=== PATIENT | male | born 1965 | race Caucasian/White ===

== ENCOUNTER 2022-05-19 08:03 | Outpatient (CLI) | payer BC, SELFPAY ==
--- NOTE | 2022-05-19 08:15 | MR_ITS ---
[facility] [address] [facility] [address] Phone:?[phone] Fax:?[phone] Referring Physician Information: Shimon Ospina M.D. [address] [facility] [address] Phone:?[phone] Fax:?[phone] Patient:?Al Wiley D.O.B:?1965 Sex:?Male Phone:?[phone] [facility] MRN:?[id number] Exam Date:?05/19/2022 ? EXAM: MRI of the LEFT KNEE, without contrast CLINICAL: Left knee pain. Evaluate for medial meniscal tear. COMPARISONS: None available. TECHNICAL: MR sequences of the left knee: sagittals: PD, PDFS coronals: PD, T2FS axials: PD, PDFS SEDATION: None. CONTRAST: None. FINDINGS: Ligaments: ACL: Intact ACL anteromedial and posterolateral bundles, without sprain or tear. PCL: Intact PCL, without acute or chronic injury. MCL: Intact MCL superficial and deep layers, without injury. LCL: There is mild partial interstitial tearing of the conjoined distal LCL and biceps femoris tendon with adjacent soft tissue edema as seen on axial series 4 image 26-28. Remainder of the LCL appears intact. Posterolateral corner: There is increased edema within the popliteus muscle. Popliteus tendon is intact. There is mild partial interstitial tearing of the conjoined distal LCL and biceps femoris tendon as above. The distal iliotibial band and the popliteofibular ligament appear intact. Posteromedial corner: Semimembranosus, pes anserine tendons and posterior oblique ligament appear intact. Extensor mechanism: Patellar tendon: Intact, without tendinopathy. Quadriceps tendon: Intact, without tendinopathy. Retinacula: Medial and lateral retinacula are intact. Patellofemoral joint: Patella: Small segment of full-thickness chondral loss involving the medial patellar facet on axial series 4 image 8-10 with underlying subchondral marrow edema. There is chondral heterogeneity with deep chondral fissuring involving the lateral facet with minimal underlying subchondral reactive edema. Trochlea: Small segment of chondral heterogeneity and delamination involves the inferomedial trochlea on sagittal series 6 image 15 with minimal adjacent subchondral reactive edema. Medial compartment: Medial meniscus: There is complex tearing involving the posterior horn extending into the posterior root, body segment and anterior horn. Approximately 4 mm of medial extrusion of torn body segment medial meniscus into the medial gutter. Medial cartilage: High-grade/full-thickness chondral loss involves the weightbearing medial femoral condyle and peripheral medial tibial plateau with underlying subchondral reactive edema. Lateral compartment: Lateral meniscus: Mild ill-defined fraying/tearing involving the undersurface of the body segment on coronal series 8 image 19-20 and sagittal series 6 image 25. Ill-defined fraying/tearing involving the posterior root fibers on sagittal series 6 images 18-20. No significant meniscal displacement. Lateral cartilage: There is heterogeneity of the lateral compartment cartilage. Grade 3 chondral thinning involving the peripheral posterior nonweightbearing lateral femoral condyle. Knee joint: Effusion: Physiologic left knee effusion. Intra-articular bodies:?No convincing bodies identified. Popliteal cyst: None. Bones: No suspicious bone marrow signal alteration or fracture line. IMPRESSION: 1. Tearing of the majority of the medial meniscus with extrusion of torn body segment meniscal tissue into the medial gutter. 2. Mild fraying/tearing involving the undersurface of the body segment lateral meniscus with ill-defined fraying/tearing involving the posterior root fibers lateral meniscus. 3. Mild partial articular surface tearing of the conjoined distal LCL and biceps femoris tendon with adjacent soft tissue edema. Popliteus muscle strain is also noted. 4. Tricompartmental chondromalacia/chondral loss as above. JCZ Electronically signed on 05/19/2022 1:39:00 PM by Hermilo Caro D.O.
== END 2022-05-19 08:04 | disposition home or self-care (01) ==
PROVIDERS: PCP Family Medicine; Visit Provider Family Medicine
DX: M25.562 Pain in left knee (principal); S83.242A Other tear of medial meniscus, current injury, left knee, initial encounter; M23.252 Derangement of posterior horn of lateral meniscus due to old tear or injury, left knee; M94.262 Chondromalacia, left knee
CPT/HCPCS: 73721

== ENCOUNTER 2022-10-05 10:00 | Outpatient (CLI) | payer BC, SELFPAY | END 2022-10-05 10:01 | disposition home or self-care (01) | PROVIDERS: PCP Family Medicine; Visit Provider Family Medicine | DX: Z00.00 Encounter for general adult medical examination without abnormal findings (principal); E78.5 Hyperlipidemia, unspecified; E11.9 Type 2 diabetes mellitus without complications; I10 Essential (primary) hypertension; R04.2 Hemoptysis; M10.9 Gout, unspecified; Z12.5 Encounter for screening for malignant neoplasm of prostate | CPT/HCPCS: 80048; 80061; 84153; 84460; 85025 ==

== ENCOUNTER 2022-11-12 11:35 | Outpatient (CLI) | payer BC, SELFPAY ==
--- NOTE | 2022-11-12 07:29 | PM.ANHP ---
HPI - Pre-Anesthesia History of Present Illness Time Seen by Provider: : Date Seen: 11/12/22 Date of service: 11/12/22 Reason for visit: pre endoscopy Source: patient and old records reviewed Review of Systems Status of ROS Reports: 10 or more systems reviewed and unremarkable except as noted in History and below [facility] Medical History (Updated 10/11/22 @ 13:02 by Shimon Ospina MD) Hemoptysis ?R04.2 - Hemoptysis (ICD-10) Hematemesis ?K92.0 - Hematemesis (ICD-10) Aphthous stomatitis ?K12.0 - Recurrent oral aphthae (ICD-10) Medial meniscus tear ?S83.249A - Other tear of medial meniscus, current injury, unspecified knee, initial encounter (ICD-10) Type 2 diabetes mellitus without complication ?E11.9 - Type 2 diabetes mellitus without complications (ICD-10) Insomnia ?G47.00 - Insomnia, unspecified (ICD-10) Chronic colitis ?K52.9 - Noninfective gastroenteritis and colitis, unspecified (ICD-10) Gout ?M10.9 - Gout, unspecified (ICD-10) GERD (gastroesophageal reflux disease) ?K21.9 - Gastro-esophageal reflux disease without esophagitis (ICD-10) Hyperlipidemia ?E78.5 - Hyperlipidemia, unspecified (ICD-10) Hypertension ?I10 - Essential (primary) hypertension (ICD-10) Surgical History Status post carpal tunnel release (2015) ?Z98.890 - Other specified postprocedural states (ICD-10) History of tympanostomy ?Z98.890 - Other specified postprocedural states (ICD-10) History of carpal tunnel surgery of right wrist (05/18/16) ?Z98.890 - Other specified postprocedural states (ICD-10) History of carpal tunnel surgery of left wrist (08/05/15) ?Z98.890 - Other specified postprocedural states (ICD-10) Family History , RN) Mother Diabetes Maternal Grandmother Diabetes Father Heart disease Brother Heart disease Social History (Updated 05/06/22 @ 11:49 by Debora Barrett) Narrative: - Nanette, [employer], self-employed, non-smoker, social EtOH Smoking Status: Former smoker Little interest or pleasure in doing things: not at all Feeling down, depressed, or hopeless: not at all Meds Home Medications and Allergies Home Medications Medication Instructions Recorded Confirmed Type omeprazole 20 mg capsule,delayed 20 mg PO DAILY 05/07/22 10/05/22 History release sildenafil 100 mg tablet 50 - 100 mg PO .As Needed PRN 05/07/22 10/05/22 History naproxen 500 mg tablet 500 mg PO BID PRN 05/10/22 10/05/22 History otknrsgp-hjzqymqoyp-bs glycn-C 500 cap PO 10/05/22 10/05/22 History mg-400 mg capsule omega 1-zgt-acw-fish oil 1,000 mg 2 cap PO QDAY 10/05/22 10/05/22 History (120 mg-180 mg) capsule (Fish Oil) tozzzjt-ntfd-hijlp-oreg-capryl PO QDAY 10/05/22 10/05/22 History Allergies Allergy/AdvReac Type Severity Reaction Status Date / Time No Known Drug Allergies Allergy Verified 10/05/22 09:26 Exam Const Documenting provider has reviewed patient's vital signs: yes Common normals: no apparent distress, oriented x3, healthy appearing, alert and well nourished General appearance: cooperative and comfortable Orientation/consciousness: Yes awake HENMT Common normals: normocephalic Head and scalp: normocephalic Neck & C-Spine Common normals: full ROM Chest Chest: symmetrical chest wall rise Resp Common normals: normal respiratory effort, no retractions, no use of accessory muscles and clear to auscultation bilaterally Auscultation: clear to auscultation bilaterally Cardio Common normals: regular rate, regular rhythm, S1 normal heart sound, S2 normal heart sound and no murmurs Rate: regular rate Rhythm: regular rhythm Heart sounds: S1 normal and S2 normal Neuro Common normals: oriented x3 Sensorium/orientation: awake and alert Assessment and Plan Assessment and plan (1) GERD (gastroesophageal reflux disease): Status: Acute Plan no contraindication to sedation and endoscopy
--- NOTE | 2022-11-12 07:29 | W.ANESCHARGE ---
Anesthesia Charges Start Date/Time Anesthesia Start Date: 11/12/22 Anesthesia Start Time: 12:54 Stop Date/Time Anesthesia Stop Date: 11/12/22 Anesthesia Stop Time: 13:13
--- NOTE | 2022-11-12 13:15 | W.ANESCHARGE ---
Anesthesia Charges Start Date/Time Anesthesia Start Date: 11/12/22 Anesthesia Start Time: 12:54 Stop Date/Time Anesthesia Stop Date: 11/12/22 Anesthesia Stop Time: 13:13
== END 2022-11-12 11:36 | disposition home or self-care (01) ==
LOC: OP CLINIC 11:35
PROVIDERS: PCP Family Medicine; Visit Provider Internal Medicine
DX: R19.8 Other specified symptoms and signs involving the digestive system and abdomen (principal)
CPT/HCPCS: 43239; 731; 88305; J2704; J3490

== ENCOUNTER 2023-11-18 10:22 | Outpatient (CLI) | payer BC, SELFPAY ==
--- OUTSIDE RECORDS SUMMARY | 2023-11-18 10:28 | XMS_ITS | Clinical Summary ---
Author Organization [employer] [facility] [employer] [place], [place] [address] Care Team Providers Care Senior Software Engineer Name Role Phone Shimon Ospina MD Primary Care Provider + Allergies No known active allergies Medications Medication Sig Dispensed Refills Start Date End Date Status naproxen (NAPROSYN) 500 mg tabletIndication s:Gout, unspecified TAKE 1 TABLET BY MOUTH 2 TIMES DAILY WITH MEALS. 180 tablet 2 02/23/2018 Active sildenafil citrate (VIAGRA) 100 mg tablet Take 0.5-1 Tablets (50-100 mg) by mouth once daily if needed one hour prior to intercourse. 180 Tablet 09/28/2021 Active gemfibroziL (LOPID) 600 mg tablet Take 1 Tablet (600 mg) by mouth once daily. 90 Tablet 3 11/05/2022 Active fluticasone propionate (FLOVENT) 220 mcg/Actuation inhaler Take 1 Puff by mouth every 12 hours As Needed for Esophagitis. 12 g 2 11/30/2022 Active omeprazole (PRILOSEC) 20 mg Delayed-Release capsule Take 1 Capsule (20 mg) by mouth once daily before a meal. 90 Capsule 3 01/02/2023 Active sildenafil citrate (VIAGRA) 100 mg tablet Take 0.5-1 Tablets (50-100 mg) by mouth once daily if needed 1 hour prior to intercourse. 30 Tablet 1 01/02/2023 Active simvastatin (ZOCOR) 80 mg tablet Take 1 Tablet (80 mg) by mouth once daily in the evening. 90 Tablet 3 02/15/2023 Active losartan-hydroch lorothiazide (HYZAAR) 100-25 mg tablet Take 1 Tablet by mouth once daily. 90 Tablet 09/23/2023 Active EPINEPHrine (EPIPEN) 0.3 mg/0.3 mL auto-injector Inject 0.3 mg intramuscular one time if needed as a single dose; may repeat once. 2 Each 2 09/23/2023 Active allopurinoL (ZYLOPRIM) 300 mg tablet Take 0.5 Tablets (150 mg) by mouth once daily. 30 Tablet 11/14/2023 Active allopurinoL (ZYLOPRIM) 300 mg tablet Take 0.5 Tablets (150 mg) by mouth once daily. 45 Tablet 1 04/13/2023 4 Discontinue d(Reorder (E-cancel not sent)) Active Problems Problem Noted Date Diagnosed Date Hypertension 07/13/2015 Hyperlipidemia 07/13/2015 Type 2 diabetes mellitus without complication Insomnia 09/06/2010 Esophageal reflux 11/14/2006 Impotence of organic origin 11/14/2006 Right carpal tunnel syndrome Resolved Problems Problem Noted Date Diagnosed Date Resolved Date Gout, unspecified 01/26/2015 07/13/2015 Type 2 diabetes mellitus 01/25/2014 Elevated blood sugar 09/06/2010 014 Regional enteritis of unspecified site 11/14/2006 01/26/2015 Unspecified essential hypertension 11/14/2006 07/13/2015 Other and unspecified hyperlipidemia 11/14/2006 07/13/2015 Immunizations Name Administration Dates Next Due Influenza, IIV3 (Age >=3 years) 06/16/2012,05/07 Tdap 09/07/2011 Family History Medical History Relation Name Comments Heart Disease Brother CABG Heart Disease Father CABG Hypertension Mother Other Mother kidney Relation Name Status Comments Brother Father Mother Social History Tobacco Use Types Packs/Day Years Used Date Smoking Tobacco: Former Cigarettes Q uit: 06/06/2007 Smokeless Tobacco: Never Tobacco Cessation:Counseling Given: Yes Alcohol Use Standard Drinks/Week Comments Yes 0 (1 standard drink = 0.6 oz pur e alcohol) social PHQ-2 Answer Date Recorded PHQ-2 Score 0 08/06/2018 Sex and Gender Information Value Date Recorded Sex Assigned at Not on file Gender Identity Not on file Sexual Orientation Not on file Obstetrics History Last Filed Vital Signs Vital Sign Reading Time Taken Comments Blood Pressure 118/81 12/02/2022 1:40 PM CDT Pulse 78 12/02/2022 1:40 PM CDT Temperature 36.8 ??C (98.2 ??F) 12/02/2022 1:08 PM CD T Respiratory Rate 16 12/02/2022 1:40 PM CDT Oxygen Saturation 97% 12/02/2022 1:40 PM CDT Inhaled Oxygen Concentration - - Weight 102.4 kg (225 lb 12.8 oz) 2022 11:47 AM CDT Height 172.7 cm (5' 8) 12/02/2022 11:4 7 AM CDT Body Mass Index 34.33 12/02/2022 11:47 AM CDT Plan of Treatment Health Maintenance Due Date Last Done Comments HIV for age 15-65 1981 Hepatitis C screening for age 18-79 1984 Colonoscopy through age 75 12/27/2011 Zoster (shingles) series for age 50+ (1 of 2) 2016 BMI (ht and wt on same day) for age 18+ 12/08/2018 12/08/2017, 02/14/2017, 05/17/2016, Additional history exists Depression screening for age 12+ 12/08/2018 12/08/2017, 02/13/2016 Tetanus booster 09/06/2021 09/07/2011 Lipids for age 45-75 12/08/2022 12/08/2017, 02/14/2017, 02/13/2016, Additional history exists COVID-19 vaccine series (2022-24 season) 2023 03/17/2022, 05/02/2021, 10/28/2020, Additional history exists Influenza for age 50-64 02/05/2024 06/16/2012, 05/07 Tdap Completed 09/07/2011 Pneumococcal series for age 6-64 Aged Out No longer eligible based on patient's age to complete this topic Procedures Procedure Name Priority Date/Time Associated Diagnosis Comments LIPID PANEL W REFLEX MEASURED LDL Add On 12/08/2017 10:20 AM CDT Hyperlipidemia, unspecified hyperlipidemia type from Last 3 Months or Most Recently Relevant to Health Maintenance Results * (ABNORMAL) LIPID PANEL W REFLEX MEASURED LDL (12/08/2017 10:20 AM CDT) CHOLESTEROL,TOTAL 153 100 - 199 mg/dL 12/08/2017 10:56 AM CDT [facility] TRIGLYCERIDES 176(H) <150 mg/dL 12/08/2017 10:56 AM CDT [facility] HDL CHOLESTEROL 41 >40 mg/dL 8 10:56 AM CDT [facility] NON-HDL CHOLESTEROL 112 <145 mg/dl 12/08/2017 10:56 AM CDT [facility] CHOL/HDL RATIO 3.73 <4.50 12/08/2017 10:56 AM CDT [facility] LDL CHOLESTEROL 77 <=130 mg/dL 12/08/2017 10:56 AM CDT [facility] PROVIDER ORDERED STATUS RANDOM 12/08/2017 10:56 AM CDT [facility] Blood BLOOD SPECIMEN / Unknown Venipuncture / Unknown 12/08/2017 10:20 AM CDT 12/08/2017 10:20 AM CDT Shimon Ospina MD CHEMISTRY [address] [address] from Last 3 Months or Most Recently Relevant to Health Maintenance Advance Directives * Full Code (Latest Code Status on File) Date Activated Date Inactivated Comments 12/02/2022 12:21 PM 12/02/2022 4:16 PM Question Answer Comments Code Status Discussion: Unable to Assess Preferences, Provider to review later * Full Code Date Activated Date Inactivated Comments 05/18/2016 8:55 AM 05/18/2016 12:09 PM * Full Code Date Activated Date Inactivated Comments 05/17/2016 12:31 PM 05/18/2016 8:55 AM * Full Code Date Activated Date Inactivated Comments 08/05/2015 10:46 AM 08/05/2015 1:51 PM * Full Code Date Activated Date Inactivated Comments 08/05/2015 8:57 AM 08/05/2015 10:46 AM Care Teams Senior Software Engineer Relationship Specialty Start Date End Date Shimon Ospina MD [address] [place] [id number] PCP - General Family Practice 12/21/21
== END 2023-11-18 10:23 | disposition home or self-care (01) ==
PROVIDERS: PCP Family Medicine; Visit Provider Family Medicine
DX: E78.5 Hyperlipidemia, unspecified (principal); I10 Essential (primary) hypertension; Z12.5 Encounter for screening for malignant neoplasm of prostate
CPT/HCPCS: 80048; 80061; 84460; G0103

== ENCOUNTER 2024-11-20 09:11 | Outpatient (CLI) | payer BC, SELFPAY ==
[2024-11-20 15:43] LABS: Creatinine Urine 30.3 mg/dL
[2024-11-20 15:50] LABS: Microalbumin Creatinine Ratio 30 mg/g (0-30); Microalbumin Urine < 1 mg/dL
== END 2024-11-20 09:12 | disposition home or self-care (01) ==
PROVIDERS: PCP Family Medicine; Visit Provider Family Medicine
DX: E11.9 Type 2 diabetes mellitus without complications (principal); I10 Essential (primary) hypertension; E78.2 Mixed hyperlipidemia; R35.0 Frequency of micturition; Z12.5 Encounter for screening for malignant neoplasm of prostate
CPT/HCPCS: 80048; 80061; 82043; 82570; 84460; G0103